=== PATIENT | female | born 1980 ===

== ENCOUNTER 2016-12-08 20:59 | Inpatient (IN) | payer OTHER ==
[2016-12-08] MEDS ORDERED: Sodium Chloride 0.9% 1,000 ML IV ONE (21:44)
--- NOTE | 2016-12-08 21:54 | C.PDOC ---
History Of Present Illness A 36 year old female presents to the emergency room with complaints of left flank pain that started at noon today. There are no exacerbating or relieving factors. Patient denies any fever, hematuria, dysuria, vaginal bleeding, fever, chills, nausea, vomiting, or any other complaints. Time Seen by Provider: 12/08/16 21:41 Chief Complaint (Nursing): Female Genitourinary History Per: Patient History/Exam Limitations: no limitations Onset/Duration Of Symptoms: Hrs Current Symptoms Are (Timing): Still Present Severity: Mild Recent travel outside of the [place]: No Past Medical History Reviewed: Historical Data, Nursing Documentation, Vital Signs Vital Signs: Last Vital Signs Temp 98.0 F 12/08/16 23:45 Pulse 81 12/08/16 23:45 Resp 16 12/08/16 23:45 BP 122/80 12/08/16 23:45 Pulse Ox 95 12/09/16 00:29 - Medical History PMH: Denies: Chronic Kidney Disease - [facility] Procedures CYSTOSCOPY NEC (04/01/14) OTH LYSIS-PERITONEAL ADHES (04/01/14) OTH REMOVE BOTH OVARIES/TUBES (04/01/14) OTHER AND UNSPECIFIED TOTAL ABDOMINAL HYSTERECTOMY (04/01/14) REMOV URETERAL DRAIN (04/01/14) RETROGRADE PYELOGRAM (04/01/14) URETERAL CATHETERIZATION (04/01/14) Family History: Denies: [place] - Social History Hx Alcohol Use: No Hx Substance Use: No - Immunization History Hx Tetanus Toxoid Vaccination: No Hx Influenza Vaccination: No Hx Pneumococcal Vaccination: No Review Of Systems Except As Marked, All Systems Reviewed And Found Negative. Constitutional: Negative for: Fever, Chills Gastrointestinal: Negative for: Nausea, Vomiting, Diarrhea Genitourinary: Negative for: Dysuria, Frequency, Incontinence, Hematuria, Vaginal Bleeding Musculoskeletal: Positive for: Back Pain (Left flank pain) Physical Exam - Physical Exam Appears: Non-toxic Skin: Warm, Dry, No Rash Head: Atraumatic, Normacephalic Eye(s): bilateral: Normal Inspection Oral Mucosa: Moist Cardiovascular: Rhythm Regular Respiratory: Normal Breath Sounds, No Rales, No Rhonchi, No Wheezing Gastrointestinal/Abdominal: Soft, No Tenderness, No Guarding, No Rebound Back: Other (Left flank pain. No rebound. No guarding.) Extremity: Normal ROM, No Tenderness Neurological/Psych: Oriented x3, Normal Speech, Normal Cognition ED Course And Treatment - Laboratory Results Result Diagrams: 12/08/16 21:54 12/08/16 21:54 O2 Sat by Pulse Oximetry: 95 (Room air) Pulse Ox Interpretation: Normal - CT Scan/US Abd/pel w/o contrast Other Rad Studies (CT/US): Read By Radiologist, Radiology Report Reviewed CT/US Interpretation: IMPRESSION: Moderate left hydronephrosis and hydroureter secondary to left adnexal mass which causes mass. effect on the distal left ureter. Differential diagnosis of left adnexal mass includes hemorrhagic cyst, endometrioma, ovarian torsion,. presence of neoplasm cannot be excluded. Consider transvaginal sonographic correlation with. Doppler. No evidence for bowel herniation, bowel obstruction, colitis, appendicitis or diverticulitis. No gross ureteral stone or obstructive uropathy is visualized. Medical Decision Making Medical Decision Making: r/o renal colic, uti, pyelo Plan: -- Abdomen & Pelvis CT -- Labs -- Zofran & Morphine 1100: noted ct reading of ovarian lesion. us added. case discussed with dr moreno, high suspicion for torsion, US pending. pt returned from US, high clinical suspicion for torsion, dr moreno bedside, will take pt to or for exploration ekg nsr [address] twave changes Disposition - Disposition Disposition: HOSPITALIZED Disposition Time: 23:46 Condition: STABLE - Clinical Impression Clinical Impression: Ovarian torsion - Scribe Statement The provider has reviewed the documentation as recorded by the Scribe Phillip Momin All medical record entries made by the Scribe were at my direction and personally dictated by me. I have reviewed the chart and agree that the record accurately reflects my personal performance of the history, physical exam, medical decision making, and the department course for this patient. I have also personally directed, reviewed, and agree with the discharge instructions and disposition. Decision To Admit - Pt Status Changed To: Hospital Disposition Of: Inpatient - Admit Certification Admit to Inpatient:: After my assessment, the patient will require hospitalization for at least two midnights. This is because of the severity of symptoms shown, intensity of services needed, and/or the medical risk in this patient being treated as an outpatient. - InPatient: Physician Admission Certification: I certify that this patient requires 2 or more midnights of care for the following reason:: pt needs or for eval for torsion - . Bed Request Type: Regular Admitting Physician: Gatito Moreno Patient Diagnosis: Ovarian torsion
[2016-12-08] MEDS ORDERED: Morphine 4 MG/ML VIAL ONE ×3 (21:56→23:40)
[2016-12-08] MEDS ORDERED: Sodium Chloride 0.9% 1,000 ML ONE (21:56)
[2016-12-08 22:05] LABS: CHLORIDE 102 mmol/L (98-107)
[2016-12-08 22:06] LABS: BASO # 0.1 K/uL (0.0-0.2); BASO % 0.6 % (0.0-2.0); EOS # 0.1 K/uL (0.0-0.7); EOS % 1.1 % (0.0-4.0); HEMATOCRIT 39.7 % (34.0-47.0); LYMPH # 3.8 K/uL (1.0-4.3); LYMPH % 29.9 % (20.0-40.0); MEAN CELL VOLUME 89.3 fL (81.0-99.0); MEAN CORPUSCULAR HEMOGLOBIN 29.5 pg (27.0-31.0); MONO # 0.9 K/uL (0.0-0.8); MONO % 7.2 % (0.0-10.0); POTASSIUM 3.9 mmol/L (3.6-5.2); RED CELL DISTRIBUTION WIDTH 13.6 % (11.5-14.5); SODIUM 137 mmol/L (132-148); WHITE BLOOD COUNT 12.7 K/uL (4.8-10.8)
[2016-12-08 22:08] LABS: ALB/GLOB RATIO 1.2 (1.0-2.1); ALKALINE PHOSPHATASE 64 U/L (38-126); AST/SGOT 24 U/L (14-36); BILIRUBIN,TOTAL 0.7 mg/dL (0.2-1.3); BLOOD UREA NITROGEN 8 mg/dL (7-17); CARBON DIOXIDE 24 mmol/L (22-30); GFR AFRICAN-AMERICAN > 60
[2016-12-08 22:09] LABS: ALT/SGPT 28 U/L (9-52); GLUCOSE,RANDOM 87 mg/dL (65-105)
[2016-12-08 22:12] LABS: INR 1.1
--- NOTE | 2016-12-08 23:14 | US ---
EXAM: US Pelvis, Transvaginal CLINICAL HISTORY: 36 years old, female; Pain; Pelvic pain; Additional info: Left adenxal pain TECHNIQUE: Real-time transvaginal pelvic ultrasound (complete) with image documentation. Transvaginal imaging was used for better evaluation of the endometrium and adnexa. EXAM DATE/TIME: 12/08/2016 10:26 PM COMPARISON: CT - ABD PELVIS W/O PO OR IV CONT 12/08/2016 10:10:21 PM FINDINGS: Uterus: Uterus is surgically absent. Right ovary: Right ovary measures approximately 21 2 x 1.4 x 1.9 cm. There are small follicles. There is flow in the right ovary. Left ovary: Left ovary is enlarged, 6.35 x 4.28 x 5.93 cm. There is a complex mass in the left ovary. Mass measures approximately 5.2 x 3.9 x 5.3 cm. There is a fluid component to the mass. There is a larger avascular solid-appearing component. There is flow in the periphery of the left ovary. IMPRESSION: Enlarged left ovary with complex mass possibly hemorrhagic cyst with adjacent simple cyst, no torsion Followup suggested to document resolution
[2016-12-08 23:27] LABS: RBC URINE < 1 /hpf (0-3); URINE BACTERIA RARE (<OCC); URINE BILIRUBIN NEGATIVE (NEGATIVE); URINE BLOOD NEGATIVE (NEGATIVE); URINE COLOR Straw (YELLOW); URINE GLUCOSE (UA) NORMAL (Normal); URINE KETONE NEGATIVE (NEGATIVE); URINE LEUKOCYTE ESTERASE NEG Leu/uL (Negative); URINE PROTEIN NEGATIVE (NEGATIVE); URINE UROBILINOGEN NORMAL mg/dL (0.2-1.0); WBC URINE 1 /hpf (0-5)
[2016-12-08 23:52] LABS: VENOUS BLOOD GAS BASE EXCESS -4.6 mmol/L (0.0-2.0); VENOUS BLOOD GAS PCO2 46 mmHg (40-60); VENOUS BLOOD PH 7.29 (7.32-7.43)
--- NOTE | 2016-12-09 00:21 | CP.SDSHP ---
Same Day Surgery H & P - History Proposed Procedure: Diagnostic Laparascopy with possible ovarian cystectomy or oophorectomy or open laparatomy Pre-Op Diagnosis: Left Lower Quadrant pain. Left Ovarian Torsion - Allergies Allergies: Allergies No Known Allergies Allergy (Verified 12/08/16 21:41) - Physical Exam Vital Signs: Vital Signs 12/08/16 12/08/16 12/08/16 21:37 22:35 23:45 Temperature 97.5 F L 98.0 F Pulse Rate 80 80 81 Respiratory 20 18 16 Rate Blood Pressure 146/87 123/72 122/80 O2 Sat by Pulse 95 96 98 Oximetry 12/08/16 23:47 Temperature Pulse Rate Respiratory Rate Blood Pressure O2 Sat by Pulse 95 Oximetry Mental Status: Alert & Oriented x3 Neuro: WNL Heart: WNL Lungs: WNL GI: WNL - {Optional Preform as Required} Breast: WNL Abdomen: Other (Tenderness with some amount of guarding on the left flank.) PERFORMING [employer] RO[address] MANAGER: Other (Enlarged left adnexal mass) : WNL ENT: WNL Other Pertinent Findings: Enlarged left Adnexal mass - Impression Impression: Left Ovarian Torsion Pt. Evaluated Today:Candidate for Anesthesia & Procedure: Yes - Date & Time Date: 12/09/16 Time: 00:23 Short Stay Discharge - Short Stay Discharge Admitting Diagnosis/Reason for Visit: ABDOMINAL PAIN Disposition: HOSPITALIZED
[2016-12-09] MEDS ORDERED: ceFAZolin IV 1 gm in Dextrose 0 GM/0 ML BAG IVPB ONE (01:09)
[2016-12-09] MEDS ORDERED: Lactated Ringer's 1,000 ML IV ONE ×2 (01:10)
[2016-12-09] MEDS ORDERED: Propofol 10 mg/ml Inj (20 ML) ONE (01:24)
[2016-12-09] MEDS ORDERED: Rocuronium 10 mg/ml (10 ml) ONE ×2 (01:25→01:26)
[2016-12-09] MEDS ORDERED: Succinylcholine Chloride 20 mg/ml Syr (5 ml) IV ONE (01:25)
[2016-12-09] MEDS ORDERED: ceFAZolin IV 1 gm in Dextrose 1 GM/50 ML BAG IVPB ONE (01:41)
[2016-12-09] MEDS ORDERED: Lidocaine 1% Inj (20ml) ONE (01:56)
[2016-12-09] MEDS ORDERED: HYDROmorphone 0.5 mg/0.5 ml ISec IVP PRN (02:08)
[2016-12-09] MEDS ORDERED: Neostigmine Methylsulfate 3mg/3ml Syringe IV ONE (02:31)
[2016-12-09] MEDS ORDERED: Oxycodone/Acetaminophen 5/325 mg Tab PO PRN (02:51)
--- NOTE | 2016-12-09 03:00 | PCM.SURG1 ---
Surgeon's Initial Post Op Note - Surgeon's Notes Surgeon: Dr Moreno Prefitter Doors: Dr Brown Type of Anesthesia: General Endo Anesthesia Administered By: Dr Iniguez Pre-Operative Diagnosis: Abdominal Pain. Left Ovarian torsion Operative Findings: Extensive intrabdominal adhesions involving the omentun and bowels to the anterior abdominal wall and to the pelvis. There was no evidence of ovarian torsion. The left ovary involved with adhesions to the omentum and the bowels. The bowels appears normal. The uterus was absent. Rt ovary not visualized. IV Fluid intake.- 600mls. Urine Output- 50mls. EBL - 10mls Post-Operative Diagnosis: Pelvic adhesions Operation Performed: Diagnostic Laparascopy Specimen/Specimens Removed: None Estimated Blood Loss: EBL {In ML}: 10 Blood Products Given: N/A Post-Op Condition: Good Date of Surgery/Procedure: 12/09/16 Time of Surgery/Procedure: 03:01
--- NOTE | 2016-12-09 07:25 | CT ---
PROCEDURE: CT Abdomen and Pelvis without intravenous contrast HISTORY: Abdominal pain COMPARISON: None. TECHNIQUE: Axial computed tomographic images were performed through the abdomen and pelvis without the use of intravenous contrast. Subsequently, sagittal and coronal reformatted images were obtained. Radiation dose: Total exam DLP = 341 mGy-cm. This CT exam was performed using one or more of the following dose reduction techniques: Automated exposure control, adjustment of the mA and/or kV according to patient size, and/or use of iterative reconstruction technique. FINDINGS: LOWER THORAX: Unremarkable. LIVER: Unremarkable. No gross lesion or ductal dilatation. GALLBLADDER AND BILE DUCTS: Unremarkable. PANCREAS: Unremarkable. No gross lesion or ductal dilatation. SPLEEN: Unremarkable. ADRENALS: Unremarkable. No mass. KIDNEYS AND URETERS: Moderate left hydroureteronephrosis secondary to a left adnexal cystic mass which measures 5.4 centimeters. Moderate left hydroureter seen. VASCULATURE: Unremarkable. No aortic aneurysm. BOWEL: Unremarkable. No obstruction. No gross mural thickening. APPENDIX: Unremarkable. Normal appendix. PERITONEUM: Unremarkable. No free fluid. No free air. LYMPH NODES: Unremarkable. No enlarged lymph nodes. BLADDER: Decompressed urinary bladder wall. REPRODUCTIVE: Retroverted uterus. Complex mass at the level of the left adnexa, possibly related to the left ovary measuring 5.4 x 4.1 x 6.1 centimeters. BONES: No acute fracture. OTHER FINDINGS: None. IMPRESSION: Moderate left hydronephrosis and hydroureter secondary to a left adnexal mass which appears to cause mass effect on the distal left ureter. Differential diagnosis of the left adnexal mass may include a hemorrhagic cyst versus endometrioma versus ovarian torsion versus neoplasm versus additional etiology. Clinical correlation. Consider transvaginal sonographic correlation with Doppler. These findings were preliminarily reported at 10:23 p.m. on 12/08/[address] Zi Quezada .
[2016-12-09 08:28] VITALS: TEMP 97.7; O2SAT 96
--- NOTE | 2016-12-09 11:29 | RAD ---
Chest x-ray single frontal view History: Preoperative evaluation. Comparison: 11/13/2016 Findings: Persistent ill-defined areas of increased radiodensity seen within the right upper to mid lung zone as well as the left mid lung which may represent chronic scarring. Additional etiologies not excluded. This is not significantly changed since the prior study. Mild venous congestion. Heart size within normal limits. Impression: No significant interval change.
--- NOTE | 2016-12-09 14:38 | CP.PCM.DIS ---
Provider - Provider Date of Admission: 12/08/16 23:47 Attending physician: Gatito Moreno Time Spent in preparation of Discharge (in minutes): 15 Diagnosis - Discharge Diagnosis (1) Left lower quadrant pain Status: Acute Priority: Low Onset Date: ~12/08/16 Comment: Status post diagnostic laparoscopy. Significant abdominal adhesions noted. No evidence of ovarian torsion. No other additional procedures performed (2) Pelvic adhesive disease Status: Chronic Priority: Medium Onset Date: ~12/08/16 Comment: Status post diagnostic laparoscopy: significant for abdominal adhesions. Right ovary not seen. Left ovary covered with adhesions. No additional procedure(s) performed. Hospital Course - Lab Results Lab Results: Most Recent Lab Values WBC 12.7 K/uL (4.8-10.8) H 12/08/16 21:54 RBC 4.44 Mil/uL (3.80-5.20) 12/08/16 21:54 Hgb 13.1 g/dL (11.0-16.0) 12/08/16 21:54 Hct 39.7 % (34.0-47.0) 12/08/16 21:54 MCV 89.3 fL (81.0-99.0) 12/08/16 21:54 MCH 29.5 pg (27.0-31.0) 12/08/16 21:54 MCHC 33.0 g/dL (33.0-37.0) 12/08/16 21:54 RDW 13.6 % (11.5-14.5) 12/08/16 21:54 Plt Count 357 K/uL (130-400) 12/08/16 21:54 MPV 8.0 fL (7.2-11.7) 12/08/16 21:54 Neut % (Auto) 61.2 % (50.0-75.0) 12/08/16 21:54 Lymph % (Auto) 29.9 % (20.0-40.0) 12/08/16 21:54 Sutter % (Auto) 7.2 % (0.0-10.0) 12/08/16 21:54 Eos % (Auto) 1.1 % (0.0-4.0) 12/08/16 21:54 Baso % (Auto) 0.6 % (0.0-2.0) 12/08/16 21:54 Neut # 7.8 K/uL (1.8-7.0) H 12/08/16 21:54 Lymph # 3.8 K/uL (1.0-4.3) 12/08/16 21:54 Sutter # 0.9 K/uL (0.0-0.8) H 12/08/16 21:54 Eos # 0.1 K/uL (0.0-0.7) 12/08/16 21:54 Baso # 0.1 K/uL (0.0-0.2) 12/08/16 21:54 PT 12.0 SECONDS (9.7-12.2) 12/08/16 21:54 INR 1.1 12/08/16 21:54 APTT 32 SECONDS (21-34) 12/08/16 21:54 pO2 40 mm/Hg (30-55) 12/08/16 23:48 VBG pH 7.29 (7.32-7.43) L 12/08/16 23:48 VBG pCO2 46 mmHg (40-60) 12/08/16 23:48 VBG HCO3 20.5 mmol/L 12/08/16 23:48 VBG Total CO2 23.5 mmol/L (22-28) 12/08/16 23:48 VBG O2 Sat (Calc) 77.3 % (40-65) H 12/08/16 23:48 VBG Base Excess -4.6 mmol/L (0.0-2.0) L 12/08/16 23:48 VBG Potassium 5.5 mmol/L (3.6-5.2) H 12/08/16 23:48 Sodium 139.0 mmol/l (132-148) 12/08/16 23:48 Chloride 110.0 mmol/L (98-107) H 12/08/16 23:48 Glucose 82 mg/dl (65-105) 12/08/16 23:48 Lactate 1.0 mmol/L (0.7-2.1) 12/08/16 23:48 Sodium 137 mmol/L (132-148) 12/08/16 21:54 Potassium 3.9 mmol/L (3.6-5.2) 12/08/16 21:54 Chloride 102 mmol/L (98-107) 12/08/16 21:54 Carbon Dioxide 24 mmol/L (22-30) 12/08/16 21:54 Anion Gap 16 (10-20) 12/08/16 21:54 BUN 8 mg/dL (7-17) 12/08/16 21:54 Creatinine 0.7 MG/DL (0.7-1.2) 12/08/16 21:54 Est GFR ( Amer) > 60 12/08/16 21:54 Est GFR (Non-Af Amer) > 60 12/08/16 21:54 Random Glucose 87 mg/dL (65-105) 12/08/16 21:54 Calcium 9.0 mg/dl (8.6-10.4) 12/08/16 21:54 Total Bilirubin 0.7 mg/dL (0.2-1.3) 12/08/16 21:54 AST 24 U/L (14-36) 12/08/16 21:54 ALT 28 U/L (9-52) 12/08/16 21:54 Alkaline Phosphatase 64 U/L (38-126) 12/08/16 21:54 Total Protein 8.0 g/dL (6.3-8.3) 12/08/16 21:54 Albumin 4.4 g/dL (3.5-5.0) 12/08/16 21:54 Globulin 3.7 gm/dL (2.2-3.9) 12/08/16 21:54 Albumin/Globulin Ratio 1.2 (1.0-2.1) 12/08/16 21:54 Lipase 51 U/L (23-300) 12/08/16 21:54 Venous Blood Potassium 5.5 mmol/L (3.6-5.2) H 12/08/16 23:48 Urine Color Straw (YELLOW) 12/08/16 23:20 Urine Clarity Hazy (Clear) 12/08/16 23:20 Urine pH 6.0 (5.0-8.0) 12/08/16 23:20 Ur Specific [place] 1.002 (1.003-1.030) L 12/08/16 23:20 Urine Protein Negative mg/dL (NEGATIVE) 12/08/16 23:20 Urine Glucose (UA) Normal mg/dL (Normal) 12/08/16 23:20 Urine Ketones Negative mg/dL (NEGATIVE) 12/08/16 23:20 Urine Blood Negative (NEGATIVE) 12/08/16 23:20 Urine Nitrate Negative (NEGATIVE) 12/08/16 23:20 Urine Bilirubin Negative (NEGATIVE) 12/08/16 23:20 Urine Urobilinogen Normal mg/dL (0.2-1.0) 12/08/16 23:20 Ur Leukocyte Esterase Neg [place]/uL (Negative) 12/08/16 23:20 Urine WBC (Auto) 1 /hpf (0-5) 12/08/16 23:20 Urine RBC (Auto) < 1 /hpf (0-3) 12/08/16 23:20 Ur Squamous Epith Cells 3 /hpf (0-5) 12/08/16 23:20 Urine Bacteria Rare (<OCC) 12/08/16 23:20 Urine HCG, Qual Negative (NEGATIVE) 12/08/16 23:20 Blood Type O POSITIVE 12/09/16 00:32 Antibody Screen Negative 12/09/16 00:32 - Hospital Course Hospital Course: Patient admitted with acute onset of left lower quadrant abdominal pain and imaging studies suggesting left ovarian cyst and possible ovarian torsion. Patient underwent diagnostic laparoscopy with findings of extensive abdominal adhesions. Uterus not seen. Right ovary not seen. Left ovary covered by adhesions. Procedure ended at this stage. POD#1 Tolerating p.o. Ambulating and voided without difficulty. Surgery performed was discussed. Teamleaderemand glassware selector used I.D.# [id number]. - Date & Time of H&P Date of H&P: 12/08/16 Time of H&P: 19:00 Discharge Exam - Head Exam Head Exam: NORMAL INSPECTION - Eye Exam Eye Exam: Normal appearance - ENT Exam ENT Exam: Mucous Membranes Moist - Neck Exam Neck exam: Full Rom - Respiratory Exam Respiratory Exam: NORMAL BREATHING PATTERN - Cardiovascular Exam Cardiovascular Exam: REGULAR RHYTHM - GI/Abdominal Exam GI & Abdominal Exam: Normal Bowel Sounds Additional comments: Healed midline vertical scar from sternum to symphysis. Clean and dry LUQ and suprapubic laparoscopi sites (+) ABS. Minimal tenderness in LLQ to palpation. No rebound No guarding. - Extremities Exam Extremities exam: full ROM, normal inspection - Back Exam Back exam: NORMAL INSPECTION - Neurological Exam Neurological exam: Alert, Oriented x3 - Psychiatric Exam Psychiatric exam: Normal Affect, Normal Mood - Skin Skin Exam: Dry, Intact, Normal Color, Warm Discharge Plan - Discharge Medications Prescriptions: Ibuprofen [Motrin] 600 mg PO Q6 PRN #24 tab PRN Reason: Pain, Mild (1-3) oxyCODONE/Acetaminophen [Percocet 5/325 mg Tab] 1 tab PO Q4 PRN #12 tab PRN Reason: Pain, Moderate (4-7) - Follow Up Plan Condition: STABLE Disposition: HOME/ ROUTINE Instructions: Ovarian Cyst (DC) Additional Instructions: No heavy lifting [id number]. F/up [facility] 12/13/16, Dr Moreno Nothing per vagina x 2weeks Referrals: Gatito Moreno [Staff Provider] - Addendum Addendum: 12/09/16 16:41 Please note: at time of laparoscopy, left ovarian cyst was NOT confirmed.
[2016-12-09 16:13] VITALS: BP 104/69; PULSE 69; RESP 20
--- NOTE | 2016-12-11 14:19 | CARD ---
APPROVED REPORT EKG Measurement Heart [id number] <Conclusion> Normal sinus rhythm Normal ECG
--- NOTE | 2016-12-12 22:59 | OP ---
PROCEDURE DATE: 12/09/2016 PREOPERATIVE DIAGNOSIS: Abdominal pain, possibly due to ovarian torsion. POSTOPERATIVE DIAGNOSIS: Abdominal pain, abdominal and pelvic adhesions. PROCEDURE DONE: Diagnostic laparoscopy performed on 12/09/2016. SURGEON: Dr. Moreno. POST TENSIONING IRONWORKER HELPER: Dr. Brown. Assistance to this procedure was needed for exposure of tissues and also help in the conduct of the surgery. The pharmaceutical assistant remained with the surgery throughout its entire length. TYPE OF ANESTHESIA: General endotracheal. ANESTHESIOLOGIST: Anesthesia administered by Dr. Nichols. FINDINGS: Extensive intra-abdominal adhesions involving the omentum and the bowels to the anterior abdominal padron and to the pelvis. There were bowel adhesions to the pelvic sidewall on the left side and omental adhesions in the area around the umbilicus and the right lower quadrant. There were dense adhesions involving the pelvic tissues and there were no apparent reproductive organs. The uterus was absent. The left ovary was seen and was involved in dense adhesions to the omentum and the bowels. There were no signs of ovarian torsion of abdominal organ. The right ovary was not visualized due to adhesions on that side. INTRAVENOUS FLUID INTAKE: 600 mL. URINE OUTPUT: 50 mL. ESTIMATED BLOOD LOSS: 50 mL. SPECIMENS REMOVED: None. DESCRIPTION OF PROCEDURE: After obtaining informed consent, the patient was sent to the OR with IV running and Munguia catheter in place. The patient was put in a supine position on the OR table and after adequate general anesthesia, was placed in the dorsal lithotomy position. A sponge forceps with gauze clamped at the tip was inserted into the vagina to help elevate the vaginal vault. Attention was then turned onto the anterior abdominal wall where a 5 mm incision was made in the left hypochondriac region about 10 cm from the costal on the left side. A 5 mm trocar and sleeve was placed in this port after filling the abdomen with a carbon dioxide gas to a pressure of 14mmHg. Once intra-abdominal placement had been done, a laparoscope was introduced into the abdominal cavity with the above findings. The left lower quadrants of the anterior abdominal wall had dense adhesions of omentum and the bowels. Another 5 mm port was placed in the right lower quadrant where a laparoscopic probe was introduced to help expose the tissues and inspect the organs. There was no evidence of ovarian torsion and after obtaining enough pictures, the procedure was completed. Other intra-abdominal organs were inspected and found to be unremarkable, but there was extensive adhesions intra-abdominally. The carbon dioxide gas was let out of the abdominal cavity and both trocar and sleeves were taken out of the abdominal cavity and the 5 mm anterior abdominal ports were closed using #4-0 Biosyn. All counts of instruments used were correct. The patient was replaced in a supine position and was sent to the recovery room awake and in stable condition. The patient tolerated the procedure well. Gatito Moreno MD cc: [id number] TT: 12/12/2016 22:59:16 maryam [place]
== END 2016-12-09 18:50 | disposition home or self-care (01) | DRG 361 ==
LOC: C.ER 20:59 → C.3T 23:47 → C.6T 12-09 03:12
PROVIDERS: ADMIT Obstetrics & Gynecology; ATTEND Obstetrics & Gynecology
PROC: 0WJJ4ZZ Inspection of Pelvic Cavity, Percutaneous Endoscopic Approach (ICD-10-PCS; principal; 2016-12-09 01:00)
DX: N73.6 Female pelvic peritoneal adhesions (postinfective) (principal); Z90.721 Acquired absence of ovaries, unilateral; Z90.710 Acquired absence of both cervix and uterus

== ENCOUNTER 2017-03-24 00:48 | Emergency (ER) | payer SELFPAY ==
[2017-03-24 00:59] VITALS: O2SAT 99
[2017-03-24] MEDS ORDERED: Sodium Chloride 0.9% 1,000 ML IV ONE (01:06)
[2017-03-24 01:25] LABS: BASO % 0.5 % (0.0-2.0); EOS # 0.1 K/uL (0.0-0.7); EOS % 1.3 % (0.0-4.0); HEMATOCRIT 38.6 % (34.0-47.0); LYMPH # 2.4 K/uL (1.0-4.3); LYMPH % 27.9 % (20.0-40.0); MEAN CELL VOLUME 88.9 fL (81.0-99.0); MEAN CORPUSCULAR HEMOGLOBIN 30.1 pg (27.0-31.0); MEAN CORPUSCULAR HGB CONC 33.9 g/dL (33.0-37.0); MEAN PLATELET VOLUME 8.2 fL (7.2-11.7); MONO # 0.8 K/uL (0.0-0.8); MONO % 9.6 % (0.0-10.0); RED CELL DISTRIBUTION WIDTH 13.2 % (11.5-14.5); WHITE BLOOD COUNT 8.7 K/uL (4.8-10.8)
--- NOTE | 2017-03-24 01:31 | C.PDOC ---
History Of Present Illness 36 year old female who presents to the ER with a complaint of chest pain and palpitations that began a half hour ago that worsens with deep inspiration and movement. Denies cough or lightheadedness. Chief Complaint (Nursing): Chest Pain History Per: Patient History/Exam Limitations: no limitations Onset/Duration Of Symptoms: Mins Current Symptoms Are (Timing): Still Present Associated Symptoms: denies: Nausea, Dyspnea, Diaphoresis, Syncope Modifying Factors: None Exacerbating Factors: Movement, Deep Breathing Alleviating Factors: None Recent travel outside of the [place]: No Past Medical History Reviewed: Historical Data, Nursing Documentation, Vital Signs Vital Signs: Last Vital Signs Temp 97.8 F 03/24/17 00:55 Pulse 87 03/24/17 00:55 Resp 14 03/24/17 00:55 BP 149/97 H 03/24/17 00:55 Pulse Ox 99 03/24/17 01:44 - Medical History PMH: No Chronic Diseases - [facility] Procedures CYSTOSCOPY NEC (04/01/14) INSPECTION OF PELVIC CAVITY, PERC ENDO APPROACH (12/08/16) OTH LYSIS-PERITONEAL ADHES (04/01/14) OTH REMOVE BOTH OVARIES/TUBES (04/01/14) OTHER AND UNSPECIFIED TOTAL ABDOMINAL HYSTERECTOMY (04/01/14) REMOV URETERAL DRAIN (04/01/14) RETROGRADE PYELOGRAM (04/01/14) URETERAL CATHETERIZATION (04/01/14) Family History: States: No Known Family Hx - Social History Hx Alcohol Use: No Hx Substance Use: No - Immunization History Hx Tetanus Toxoid Vaccination: No Hx Influenza Vaccination: No Hx Pneumococcal Vaccination: No Review Of Systems Constitutional: Negative for: Fever, Chills Cardiovascular: Positive for: Chest Pain, Palpitations. Negative for: Light Headedness Respiratory: Negative for: Cough, Shortness of Breath Gastrointestinal: Negative for: Nausea, Vomiting Physical Exam - Physical Exam Appears: Non-toxic, No Acute Distress Skin: Normal Color, Warm, Dry Head: Atraumatic, Normacephalic Oral Mucosa: Moist Throat: Normal, No Erythema Chest: Symmetrical, Tenderness (Mild left anterior wall area) Cardiovascular: Rhythm Regular, No Murmur Respiratory: Normal Breath Sounds, No Rales, No Rhonchi, No Wheezing Gastrointestinal/Abdominal: Soft, No Tenderness Neurological/Psych: Oriented x3, Normal Speech, Normal Cognition ED Course And Treatment - Laboratory Results Result Diagrams: 03/24/17 01:17 03/24/17 01:17 ECG: Interpreted By Me, Viewed By Me ECG Rhythm: Sinus Rhythm ECG Interpretation: Normal, No Acute Changes Interpretation Of ECG: NSR, normal tracings. Rate From EC O2 Sat by Pulse Oximetry: 99 Pulse Ox Interpretation: Normal - Radiology CXR: Interpreted by Me, Viewed By Me CXR Interpretation: Yes: No Acute Disease, Other (normal chest film). No: Infiltrates Progress Note: EKG, blood work, CXR, and urinalysis ordered. Toradol administered. Disposition Counseled Patient/Family Regarding: Diagnosis - Disposition Referrals: Yves Weathers [Outside] Disposition: HOME/ ROUTINE Disposition Time: :09 Condition: STABLE Prescriptions: Naproxen [Naprosyn Tab] 375 mg PO TIDPC #20 tab Instructions: Chest Wall Pain (ED) Forms: [employer] (Latvian) - POA Present On Arrival: None - Clinical Impression Clinical Impression: Chest wall pain - Scribe Statement The provider has reviewed the documentation as recorded by the Scribjaz Tavares All medical record entries made by the Scribe were at my direction and personally dictated by me. I have reviewed the chart and agree that the record accurately reflects my personal performance of the history, physical exam, medical decision making, and the department course for this patient. I have also personally directed, reviewed, and agree with the discharge instructions and disposition.
[2017-03-24] MEDS ORDERED: Sodium Chloride 0.9% 1,000 ML ONE (01:38)
[2017-03-24 01:51] LABS: ALB/GLOB RATIO 1.1 (1.0-2.1); ALKALINE PHOSPHATASE 63 U/L (38-126); ALT/SGPT 28 U/L (9-52); AST/SGOT 21 U/L (14-36); BILIRUBIN,TOTAL 0.5 mg/dL (0.2-1.3); BLOOD UREA NITROGEN 8 mg/dL (7-17); CARBON DIOXIDE 20 mmol/L (22-30); CHLORIDE 108 mmol/L (98-107); GFR AFRICAN-AMERICAN > 60; GLUCOSE,RANDOM 106 mg/dL (65-105); POTASSIUM 3.9 mmol/L (3.6-5.2); SODIUM 142 mmol/L (132-148); TOTAL PROTEIN 7.2 g/dL (6.3-8.3)
[2017-03-24 02:20] VITALS: BP 139/97; PULSE 84; RESP 18; TEMP 98.2
--- NOTE | 2017-03-24 11:53 | RAD ---
HISTORY: chest pain COMPARISON: Chest CT 04/16/2014 and more recent prior chest radiograph 12/09/2016. TECHNIQUE: Chest PA and lateral FINDINGS: LUNGS: No active pulmonary disease. Chronic fibrotic changes are mild at the right apex and mid left lung laterally, stable in the interval. Associated granulomatous changes are also noted in the same distributions. PLEURA: No significant pleural effusion identified. No pneumothorax apparent. CARDIOVASCULAR: Normal. OSSEOUS STRUCTURES: No significant abnormalities. VISUALIZED UPPER ABDOMEN: Normal. OTHER FINDINGS: None. IMPRESSION: No acute cardiopulmonary disease identified. Chronic fibrotic changes are seen as well as granulomatous disease on a limited basis as discussed above bilaterally. No significant interval change appreciable.
--- NOTE | 2017-04-06 20:34 | CARD ---
APPROVED REPORT EKG Measurement Heart [id number] AL [id number] <Conclusion> Normal sinus rhythm Normal ECG
== END 2017-03-24 02:20 | disposition home or self-care (01) ==
LOC: C.ER 00:48
DX: R07.89 Other chest pain (principal)
CPT/HCPCS: 71020; 80053; 84484; 84703; 85025; 85378; 96374; 99284; J1885; J7040

== ENCOUNTER 2017-08-22 19:09 | Emergency (ER) | payer SELFPAY ==
[2017-08-22] MEDS ORDERED: Morphine 4 MG/ML VIAL ONE (19:45)
[2017-08-22 19:57] LABS: BASO # 0.1 K/uL (0.0-0.2); BASO % 0.8 % (0.0-2.0); EOS # 0.1 K/uL (0.0-0.7); EOS % 1.4 % (0.0-4.0); HEMOGLOBIN 14.7 g/dL (11.0-16.0); LYMPH # 4.1 K/uL (1.0-4.3); LYMPH % 37.6 % (20.0-40.0); MEAN CELL VOLUME 89.5 fL (81.0-99.0); MEAN CORPUSCULAR HEMOGLOBIN 31.4 pg (27.0-31.0); MEAN CORPUSCULAR HGB CONC 35.1 g/dL (33.0-37.0); MEAN PLATELET VOLUME 8.4 fL (7.2-11.7); MONO # 0.8 K/uL (0.0-0.8); MONO % 6.9 % (0.0-10.0); NEUT # 5.9 K/uL (1.8-7.0); NEUT % 53.3 % (50.0-75.0); RBC 4.67 Mil/uL (3.80-5.20); RED CELL DISTRIBUTION WIDTH 12.9 % (11.5-14.5)
--- NOTE | 2017-08-22 19:57 | C.PDOC ---
History Of Present Illness Everton Pittman is a 37 year old female, with no significant past medical history , who presents to the emergency department complaining of a sudden left sided chest pain associated with cough onset today at 4pm. Patient describes the pain as constant, worst with deep breaths and movement. Patient denies similar symptoms in the past. She denies any fever, chills, shortness of breath, recent travels, leg pain or swelling. No further medical complaints. PMD: None provided. Time Seen by Provider: 08/22/17 19:31 Chief Complaint (Nursing): Chest Pain History Per: Patient History/Exam Limitations: no limitations Onset/Duration Of Symptoms: Hrs (today), Sudden Onset Current Symptoms Are (Timing): Still Present Quality: "Pain" Associated Symptoms: Other (cough). denies: Dyspnea Exacerbating Factors: Movement, Deep Breathing Past Medical History Reviewed: Historical Data, Nursing Documentation, Vital Signs Vital Signs: Last Vital Signs Temp 98.7 F 08/22/17 22:42 Pulse 71 08/22/17 22:42 Resp 18 08/22/17 22:42 BP 105/71 08/22/17 22:42 Pulse Ox 99 08/22/17 22:42 - Medical History PMH: No Chronic Diseases Denies: Chronic Kidney Disease Surgical History: No Surg Hx - [facility] Procedures CYSTOSCOPY NEC (04/01/14) INSPECTION OF PELVIC CAVITY, PERC ENDO APPROACH (12/08/16) OTH LYSIS-PERITONEAL ADHES (04/01/14) OTH REMOVE BOTH OVARIES/TUBES (04/01/14) OTHER AND UNSPECIFIED TOTAL ABDOMINAL HYSTERECTOMY (04/01/14) REMOV URETERAL DRAIN (04/01/14) RETROGRADE PYELOGRAM (04/01/14) URETERAL CATHETERIZATION (04/01/14) Family History: States: Unknown Family Hx Denies: [place] - Social History Hx Tobacco Use: No Hx Alcohol Use: No Hx Substance Use: No - Immunization History Hx Tetanus Toxoid Vaccination: No Hx Influenza Vaccination: No Hx Pneumococcal Vaccination: No Review Of Systems Constitutional: Negative for: Fever, Chills Cardiovascular: Positive for: Chest Pain (left sided constant) Respiratory: Positive for: Cough. Negative for: Shortness of Breath Musculoskeletal: Negative for: Leg Pain (or swelling) Physical Exam - Physical Exam Appears: Other (uncomfortable) Skin: Warm, Dry Head: Atraumatic, Normacephalic Eye(s): bilateral: Normal Inspection, PERRL, EOMI Ear(s): Bilateral: Normal Nose: Normal Oral Mucosa: Moist Throat: Normal Neck: Normal ROM, Supple Chest: Tenderness (chest wall on palpation to anterior along left lateral chest , and over the left pectoralis major.) Cardiovascular: Rhythm Regular Respiratory: Normal Breath Sounds (clear b/l), No Wheezing Gastrointestinal/Abdominal: Normal Exam, Soft, No Tenderness Back: Normal Inspection, No CVA Tenderness, No Vertebral Tenderness Extremity: Normal ROM, No Calf Tenderness, No Deformity, No Swelling Neurological/Psych: Oriented x3 (alert) ED Course And Treatment - Laboratory Results Result Diagrams: 08/22/17 19:45 08/22/17 19:45 Lab Interpretation: No Acute Changes ECG: Interpreted By Me ECG Rhythm: Sinus Rhythm ECG Interpretation: No Acute Changes O2 Sat by Pulse Oximetry: 100 (RA) Pulse Ox Interpretation: Normal - Radiology CXR: Interpreted by Me CXR Interpretation: Yes: No Acute Disease, Other (chronic granulomatous disease unchanged from prior CXR) Reevaluation Time: 22:58 Reassessment Condition: Improved (after IV Toradol.) Medical Decision Making Medical Decision Making: Initial Impression:Chest Pain Initial Plan: --EKG --CMP --Troponin I --CBC w/ differential --D Dimer --Chest one view [RAD] --Morphine 2mg IVP --HCG, Qualitative Urine --Urinalysis --reevaluation Disposition Counseled Patient/Family Regarding: Studies Performed, Diagnosis, Need For Followup, Rx Given - Disposition Referrals: Ellis Pulido MD [Medical Doctor] - Disposition: HOME/ ROUTINE Disposition Time: 22:59 Condition: IMPROVED Prescriptions: Naproxen [Naprosyn] 1 tab PO BID PRN #25 tab PRN Reason: Pain Instructions: Chest Wall Pain (ED) Forms: [employer] (Hungarian) - Clinical Impression Clinical Impression: Chest wall pain - Scribe Statement Mario Hernandez Provider Attestation: All medical record entries made by the Scribe were at my direction and personally dictated by me. I have reviewed the chart and agree that the record accurately reflects my personal performance of the history, physical exam, medical decision making, and the department course for this patient. I have also personally directed, reviewed, and agree with the discharge instructions and disposition.
[2017-08-22 20:08] LABS: ALB/GLOB RATIO 1.3 (1.0-2.1); ALBUMIN 4.4 g/dL (3.5-5.0); ALT/SGPT 21 U/L (9-52); AST/SGOT 23 U/L (14-36); BLOOD UREA NITROGEN 13 mg/dL (7-17); CALCIUM 9.6 mg/dl (8.6-10.4); GFR AFRICAN-AMERICAN > 60; GFR NON-AFRICAN AMERICAN > 60
[2017-08-22 21:14] LABS: SQUAMOUS EPITHIAL 4 /hpf (0-5); URINE BACTERIA RARE (<OCC)
[2017-08-22] MEDS ORDERED: Albuterol 0.083% Inhal Sol (2.5 mg/3 mL) UD IH STA (21:14)
[2017-08-22 21:17] LABS: URINE BILIRUBIN NEGATIVE (NEGATIVE); URINE BLOOD NEGATIVE (NEGATIVE); URINE CLARITY CLEAR (Clear); URINE COLOR LIGHT YELLOW (YELLOW); URINE GLUCOSE (UA) NEGATIVE (Normal); URINE LEUKOCYTE ESTERASE NEGATIVE Leu/uL (Negative); URINE NITRATE NEGATIVE (NEGATIVE); URINE PROTEIN NEGATIVE (NEGATIVE); URINE UROBILINOGEN 0.2 mg/dL (0.2-1.0)
[2017-08-22 21:18] LABS: HCG,QUALITATIVE URINE NEGATIVE (NEGATIVE)
[2017-08-22] MEDS ORDERED: Albuterol 0.083% Inhal Sol (2.5 mg/3 mL) UD ONE (21:24)
[2017-08-22 22:43] VITALS: BP 105/71; PULSE 71; RESP 18; TEMP 98.7
[2017-08-22 23:01] VITALS: O2SAT 100
--- NOTE | 2017-08-23 08:54 | RAD ---
Chest x-ray single frontal view History: Chest pain. Comparison: 03/24/2017 Findings: Mild venous congestion. Probable chronic fibrotic changes and or granulomatous change is seen in the upper to mid lung zones bilaterally. Heart size within normal limits. Tortuous aorta. Degenerative changes in the spine. Impression: Mild venous congestion. Probable chronic fibrotic changes and or granulomatous change is seen in the upper to mid lung zones bilaterally.
--- NOTE | 2017-08-23 21:55 | CARD ---
APPROVED REPORT EKG Measurement Heart [id number] ID [id number] <Conclusion> Normal sinus rhythm with sinus arrhythmia Normal ECG
== END 2017-08-22 23:07 | disposition home or self-care (01) ==
LOC: C.ER 19:09
DX: R07.89 Other chest pain (principal)
CPT/HCPCS: 71045; 80053; 81001; 84484; 84703; 85025; 85378; 87804; 93005; 94640; 96374; 96375; 99285; J1885; J2270

== ENCOUNTER 2017-09-10 10:52 | Emergency (ER) | payer OTHER ==
[2017-09-10] MEDS ORDERED: Sodium Chloride 0.9% 1,000 ML IV ONE (11:30)
--- NOTE | 2017-09-10 11:34 | C.PDOC ---
History Of Present Illness 37yo female, with history of a hysterectomy, presents to ER with complaints of left lower quadrant abdominal pain for the past 3 days. Patient states the pain is sharp and present constantly. She has taken Tylenol and Advil, with last dose at 10PM with minimal relief. She also has a subjective fever but denies any chills, nausea, vomiting, diarrhea, constipation. She reports her last bowel movement was yesterday and was normal. She also denies any dysuria, hematuria. Patient denies any chest pain or shortness of breath as well. Of note , patient reports this is the first instance of such pain. She has no other medical complaints. Time Seen by Provider: 09/10/17 11:12 Chief Complaint (Nursing): Abdominal Pain History Per: Patient History/Exam Limitations: no limitations Onset/Duration Of Symptoms: Days (3), Persistent Location Of Pain/Discomfort: LLQ Quality Of Discomfort: Sharp, "Pain" Associated Symptoms: Fever. denies: Chills, Nausea, Vomiting, Diarrhea, Chest Pain, Urinary Symptoms Abnormal Vaginal Bleeding: No Past Medical History Reviewed: Historical Data, Nursing Documentation, Vital Signs Vital Signs: Last Vital Signs Temp 98.1 F 09/10/17 11:20 Pulse 78 09/10/17 14:38 Resp 16 09/10/17 14:38 BP 95/59 L 09/10/17 14:38 Pulse Ox 98 09/10/17 14:38 - Medical History PMH: No Chronic Diseases Denies: Chronic Kidney Disease Other Surgeries: Hysterectomy - [facility] Procedures CYSTOSCOPY NEC (04/01/14) INSPECTION OF PELVIC CAVITY, PERC ENDO APPROACH (12/08/16) OTH LYSIS-PERITONEAL ADHES (04/01/14) OTH REMOVE BOTH OVARIES/TUBES (04/01/14) OTHER AND UNSPECIFIED TOTAL ABDOMINAL HYSTERECTOMY (04/01/14) REMOV URETERAL DRAIN (04/01/14) RETROGRADE PYELOGRAM (04/01/14) URETERAL CATHETERIZATION (04/01/14) Family History: States: Unknown Family Hx Denies: [place] - Social History Hx Tobacco Use: No Hx Alcohol Use: No Hx Substance Use: No - Immunization History Hx Tetanus Toxoid Vaccination: No Hx Influenza Vaccination: No Hx Pneumococcal Vaccination: No Review Of Systems Except As Marked, All Systems Reviewed And Found Negative. Constitutional: Positive for: Fever (tactile). Negative for: Chills Cardiovascular: Negative for: Chest Pain Respiratory: Negative for: Shortness of Breath Gastrointestinal: Positive for: Abdominal Pain. Negative for: Nausea, Vomiting , Diarrhea, Constipation Genitourinary: Negative for: Dysuria, Hematuria Physical Exam - Physical Exam Appears: Non-toxic Skin: Warm, Dry Head: Atraumatic, Normacephalic Eye(s): bilateral: Normal Inspection Neck: Normal ROM, Supple Chest: Symmetrical Cardiovascular: Rhythm Regular Respiratory: Normal Breath Sounds, No Wheezing Gastrointestinal/Abdominal: Bowel Sounds, Soft, Tenderness (diffuse tenderness, more exquisitely present in left lower quadrant), No Guarding, Rebound Back: Normal Inspection, No CVA Tenderness, No Vertebral Tenderness Neurological/Psych: Oriented x3, Normal Speech ED Course And Treatment - Laboratory Results Result Diagrams: 09/10/17 11:48 09/10/17 11:48 O2 Sat by Pulse Oximetry: 98 (ra) Pulse Ox Interpretation: Normal - Physician Consult Information Physician Contacted: Molly A Elliot Outcome Of Conversation: Discussed patient with scientific aide magnetic resonance imaging director, recommends outpatient follow up with scientific aide in 6-8 weeks. Medical Decision Making Medical Decision Making: Impression: Abdominal pain x 3 days Plan: -- Labs -- Toradol 30mg IVP -- IV Fluids Disposition Counseled Patient/Family Regarding: Studies Performed, Diagnosis, Need For Followup, Rx Given - Disposition Referrals: [facility] [Outside] Disposition: HOME/ ROUTINE Disposition Time: 18:10 Condition: STABLE Additional Instructions: FOLLOW UP WITH CERTIFIED WELLNESS PROGRAM COORDINATOR WITHIN 1 WEEK USE MEDICATIONS NEEDED FOR PAIN RETURN TO ER IF SYMPTOMS WORSEN Prescriptions: Acetaminophen with Codeine [Tylenol with Codeine #3 Tablet] 1 each PO Q6 PRN # 12 tablet PRN Reason: pain Naproxen 375 mg PO BID PRN #20 tablet PRN Reason: pain Instructions: Ovarian Cyst (DC) Forms: [employer] (South Sudanese) Print Language: FAROESE - POA Present On Arrival: None - Clinical Impression Clinical Impression: Left ovarian cyst - Scribe Statement The provider has reviewed the documentation as recorded by the Scribe (Pavithra Childress) Provider Attestation: All medical record entries made by the Scribe were at my direction and personally dictated by me. I have reviewed the chart and agree that the record accurately reflects my personal performance of the history, physical exam, medical decision making, and the department course for this patient. I have also personally directed, reviewed, and agree with the discharge instructions and disposition.
[2017-09-10 11:43] VITALS: TEMP 98.1
[2017-09-10 11:52] LABS: BASO # 0.1 K/uL (0.0-0.2); EOS # 0.2 K/uL (0.0-0.7); LYMPH # 2.5 K/uL (1.0-4.3); MEAN CELL VOLUME 90.1 fL (81.0-99.0); NEUT % 61.2 % (50.0-75.0); RED CELL DISTRIBUTION WIDTH 12.9 % (11.5-14.5)
[2017-09-10 11:54] LABS: BASO % 0.9 % (0.0-2.0); EOS % 1.9 % (0.0-4.0); LYMPH % 28.1 % (20.0-40.0); MEAN CORPUSCULAR HEMOGLOBIN 31.1 pg (27.0-31.0); MEAN CORPUSCULAR HGB CONC 34.5 g/dL (33.0-37.0); MEAN PLATELET VOLUME 8.6 fL (7.2-11.7); MONO # 0.7 K/uL (0.0-0.8); MONO % 7.9 % (0.0-10.0); NEUT # 5.4 K/uL (1.8-7.0); RBC 4.49 Mil/uL (3.80-5.20); WHITE BLOOD COUNT 8.8 K/uL (4.8-10.8)
[2017-09-10 11:58] LABS: HCG,QUALITATIVE URINE NEGATIVE (NEGATIVE)
[2017-09-10 12:02] LABS: SQUAMOUS EPITHIAL 11 /hpf (0-5); URINE BACTERIA OCC (<OCC); URINE BILIRUBIN NEGATIVE (NEGATIVE); URINE BLOOD NEGATIVE (NEGATIVE); URINE CLARITY Hazy (Clear); URINE COLOR Yellow (YELLOW); URINE GLUCOSE (UA) NORMAL (Normal); URINE LEUKOCYTE ESTERASE NEG Leu/uL (Negative); URINE NITRATE NEGATIVE (NEGATIVE); URINE PROTEIN 1+ mg/dL (NEGATIVE); URINE UROBILINOGEN NORMAL mg/dL (0.2-1.0)
[2017-09-10 12:05] LABS: ALB/GLOB RATIO 1.2 (1.0-2.1); ALBUMIN 4.1 g/dL (3.5-5.0); ALT/SGPT 23 U/L (9-52); AST/SGOT 19 U/L (14-36); BLOOD UREA NITROGEN 14 mg/dL (7-17); CALCIUM 9.6 mg/dl (8.6-10.4); GFR AFRICAN-AMERICAN > 60; GFR NON-AFRICAN AMERICAN > 60; LIPASE 74 U/L (23-300)
[2017-09-10] MEDS ORDERED: Iodixanol 320 MG/ML 100 ML BOTTLE IV ONE (12:44)
[2017-09-10 14:38] VITALS: RESP 16
--- NOTE | 2017-09-10 15:25 | CT ---
PROCEDURE: CT Abdomen and Pelvis with contrast HISTORY: llq pain, r/o diverticulitis COMPARISON: CT of the abdomen and pelvis without contrast performed 12/08/16 TECHNIQUE: Contrast dose: 100 mL Visipaque Radiation dose: Total exam DLP = 308.43 mGy-cm. This CT exam was performed using one or more of the following dose reduction techniques: Automated exposure control, adjustment of the mA and/or kV according to patient size, and/or use of iterative reconstruction technique. FINDINGS: LOWER THORAX: No visible consolidation, pleural effusion, or pneumothorax. LIVER: Subtle indeterminate hypodense region adjacent to the falciform ligament, right hepatic lobe ; favored to reflect focal fatty infiltration. GALLBLADDER AND BILE DUCTS: Unremarkable. PANCREAS: Unremarkable. SPLEEN: Unremarkable. ADRENALS: Unremarkable. KIDNEYS AND URETERS: The kidneys enhance symmetrically. No hydronephrosis or obstructing calculus identified. VASCULATURE: No aortic aneurysm. BOWEL: Stomach is nondistended. Lack of oral contrast limits evaluation for bowel pathology. Bowel loops appear within normal limits of caliber without evidence of obstruction. Small bowel wall thickening in the right upper quadrant ; correlate for enteritis. APPENDIX: The appendix appears within normal limits of caliber. No secondary signs of acute appendicitis. PERITONEUM: No significant free fluid. No definite free air. LYMPH NODES: No bulky adenopathy identified. BLADDER: Under distention of the urinary bladder limits evaluation. REPRODUCTIVE: Uterus is absent consistent with hysterectomy. 5.5 x 4.3 cm left adnexal cystic lesion with evidence of septation. BONES: No acute osseous abnormality is detected. OTHER FINDINGS: None. IMPRESSION: 5.5 x 4.3 cm left adnexal cystic lesion, indeterminate. This finding demonstrates evidence of a septation. Recommend pelvic ultrasound for further characterization. Thickened small bowel loops in the right upper quadrant ; correlate clinically for enteritis. Subtle indeterminate hypodense region adjacent to the falciform ligament, right hepatic lobe ; favored to reflect focal fatty infiltration. Hysterectomy.
--- NOTE | 2017-09-10 17:41 | US ---
Indication: left adnexal mass/cyst? left sided pain Comparison: CT abdomen and pelvis with IV contrast performed 09/10/17, pelvic ultrasound performed 02/02/17 Technique: Real-time transabdominal pelvic ultrasound was performed. In addition a transvaginal pelvic ultrasound was necessary to better depict pelvic anatomy. Findings: The patient is status hysterectomy. The right ovary measures approximately 2.3 x 1.1 x 2.0 cm and contains 9 mm dominant follicle/cyst. The left ovary measures approximately 5.9 x 4.7 x 5.6 cm. Complex heterogeneous mostly hypodense left septated ovarian cystic lesion measures approximately 5.2 x 3.4 x 3.2 cm. Blood flow is demonstrated to both ovaries. No significant pelvic free fluid identified. Impression: Status post hysterectomy. 5.2 cm complex heterogeneous mostly hypodense left ovarian cystic lesion containing mildly thickened septation which appears vascular. Recommend 6 week ultrasound follow-up to assess for complete resolution. If this finding does not resolve on 6 week follow-up, recommend follow-up MRI pelvis for further evaluation. 9 mm right ovarian dominant follicle/cyst.
[2017-09-10 18:33] VITALS: BP 115/74; PULSE 63; O2SAT 100
== END 2017-09-10 18:34 | disposition home or self-care (01) ==
LOC: C.ER 10:52
DX: N83.202 Unspecified ovarian cyst, left side (principal)
CPT/HCPCS: 74177; 76830; 76856; 80053; 81001; 83690; 84703; 85025; 96361; 96374; 99285; J1885; J7040; Q9967

== ENCOUNTER 2017-10-23 13:21 | Emergency (ER) | payer OTHER ==
[2017-10-23 13:57] VITALS: TEMP 97.9
[2017-10-23 14:42] LABS: HEMOGLOBIN 14.5 g/dL (11.0-16.0); MEAN CELL VOLUME 90.4 fL (81.0-99.0); MEAN CORPUSCULAR HEMOGLOBIN 31.5 pg (27.0-31.0); MEAN CORPUSCULAR HGB CONC 34.8 g/dL (33.0-37.0); MEAN PLATELET VOLUME 8.2 fL (7.2-11.7); RBC 4.62 Mil/uL (3.80-5.20); RED CELL DISTRIBUTION WIDTH 12.8 % (11.5-14.5)
[2017-10-23 14:47] LABS: SQUAMOUS EPITHIAL 8 /hpf (0-5); URINE BACTERIA RARE (<OCC); URINE BILIRUBIN NEGATIVE (NEGATIVE); URINE BLOOD NEGATIVE (NEGATIVE); URINE CLARITY Hazy (Clear); URINE COLOR Yellow (YELLOW); URINE GLUCOSE (UA) NORMAL (Normal); URINE LEUKOCYTE ESTERASE NEG Leu/uL (Negative); URINE PROTEIN NEGATIVE (NEGATIVE); URINE UROBILINOGEN NORMAL mg/dL (0.2-1.0)
--- NOTE | 2017-10-23 15:03 | C.PDOC ---
History Of Present Illness <Layla Reese E - Last Filed: 10/23/17 18:05> <Chuck Mulligan - Last Filed: 10/24/17 12:35> Patient is a 37 year old with past medical history of fibroids, which she had a hysterectomy and salpingectomy for in who presents to the ED with complaints of diffuse abdominal/pelvic pain that is more localized to the left pelvic region. Patient was seen in the ED 09/10/17 for the same complaint and was instructed to follow up with WRITER EDITOR outpatient for a complex left ovarian cyst. Patient presents today with similar presentation that started this morning. Patient denies nausea, vomiting, abnormal vaginal discharge, diarrhea, constipation, hematochezia, hematuria but admits to subjective fever and chills. (Layla Reese) History Per: Patient History/Exam Limitations: no limitations Onset/Duration Of Symptoms: Hrs Current Symptoms Are (Timing): Still Present Severity: Moderate Pain Scale Rating Of: 5 Location: Diffuse abdominal pain < left lower quadrant Reports Recently: Seen In ED Recent travel outside of the [place]: No Additional History Per: Patient <Layla Reese E - Last Filed: 10/23/17 18:05> <Chuck Mulligan - Last Filed: 10/24/17 12:35> Time Seen by Provider: 10/23/17 14:31 Chief Complaint (Nursing): Abdominal Pain Past Medical History - Medical History PMH: Denies: Chronic Kidney Disease Other Surgeries: Hysterectomy with salpingectomy (2013). Diagnostic laparascopic to r/o ovarin torsion (2016) Family History: States: Unknown Family Hx Denies: [place] - Social History Hx Tobacco Use: No Hx Alcohol Use: No Hx Substance Use: No - Immunization History Hx Tetanus Toxoid Vaccination: No Hx Influenza Vaccination: No Hx Pneumococcal Vaccination: No <Layla Reese - Last Filed: 10/23/17 18:05> Vital Signs: Last Vital Signs Temp 97.9 F 10/23/17 13:54 Pulse 55 L 10/23/17 17:06 Resp 18 10/23/17 17:06 BP 124/80 10/23/17 17:06 Pulse Ox 100 10/23/17 18:19 - [facility] Procedures CYSTOSCOPY NEC (04/01/14) INSPECTION OF PELVIC CAVITY, PERC ENDO APPROACH (12/08/16) OTH LYSIS-PERITONEAL ADHES (04/01/14) OTH REMOVE BOTH OVARIES/TUBES (04/01/14) OTHER AND UNSPECIFIED TOTAL ABDOMINAL HYSTERECTOMY (04/01/14) REMOV URETERAL DRAIN (04/01/14) RETROGRADE PYELOGRAM (04/01/14) URETERAL CATHETERIZATION (04/01/14) Review Of Systems Constitutional: Positive for: Fever, Chills. Negative for: Weakness, Malaise Eyes: Negative for: Pain, Vision Change ENT: Negative for: Ear Pain, Ear Discharge Cardiovascular: Negative for: Chest Pain, Palpitations Respiratory: Negative for: Cough, Shortness of Breath, Hemoptysis Gastrointestinal: Positive for: Abdominal Pain. Negative for: Nausea, Vomiting , Diarrhea, Constipation, Hematochezia, Hematemesis Genitourinary: Positive for: Pelvic Pain. Negative for: Dysuria, Frequency, Hematuria, Vaginal Discharge, Vaginal Bleeding Neurological: Negative for: Weakness, Numbness, Confusion, Seizures, Dizziness <Layla Reese E - Last Filed: 10/23/17 18:05> Physical Exam - Physical Exam Appears: No Acute Distress Skin: Normal Color Head: Atraumatic, Normacephalic Eye(s): bilateral: Normal Inspection, EOMI Cardiovascular: Rhythm Regular, No Murmur Respiratory: Normal Breath Sounds, No Decreased Breath Sounds, No Accessory Muscle Use, No Rales, No Rhonchi Gastrointestinal/Abdominal: Normal Exam, Bowel Sounds, Tenderness, Other Pelvic: Other (Pelvic tenderness on palpation ) Extremity: Normal ROM, No Tenderness, No Pedal Edema, No Calf Tenderness, No Swelling Extremity: Bilateral: Atraumatic Neurological/Psych: Oriented x3, Normal Speech <Layla Reese E - Last Filed: 10/23/17 18:05> ED Course And Treatment - Laboratory Results Result Diagrams: 10/23/17 14:38 10/23/17 14:38 Lab Interpretation: Normal O2 Sat by Pulse Oximetry: 100 Reevaluation Time: 18:00 Reassessment Condition: Improved <Layla Reese - Last Filed: 10/23/17 18:05> - Laboratory Results Result Diagrams: 10/23/17 14:38 10/23/17 14:38 <Chuck Mulligan - Last Filed: 10/24/17 12:35> Medical Decision Making <Layla Reese - Last Filed: 10/23/17 18:05> <Chuck Mulligan - Last Filed: 10/24/17 12:35> Medical Decision Making: Transvaginal and pelvis US: FINDINGS:UTERUS:Status post hysterectomy, ENDOMETRIUM:N/A, CERVIX: Hysterectomy, RIGHT OVARY: Measures 2.0 x 2.7 x 3.0 cm. No solid mass. 1.7 x 1.2 x 1.5 cm physiologic cyst. LEFT OVARY: Measures 2.6 x 1.7 x 2.7 cm. No solid mass. Normal flow. FREE FLUID: No significant free fluid noted. OTHER FINDINGS: None. IMPRESSION: Status post hysterectomy. Otherwise unremarkable. CT Abdomen and Pelvis with contrast: FINDINGS:LOWER THORAX:Unremarkable. LIVER: Unremarkable. No gross lesion or ductal dilatation. GALLBLADDER AND BILE DUCTS: Unremarkable. PANCREAS: Unremarkable. No gross lesion or ductal dilatation. SPLEEN:Unremarkable. ADRENALS: Unremarkable. No mass. KIDNEYS AND URETERS: Unremarkable. No hydronephrosis. No solid mass. VASCULATURE : Unremarkable. No aortic aneurysm. BOWEL: The stomach is collapsed accentuating gastric wall thickness . In the absence of oral contrast no additional information can be gleaned from this study. Gastritis therefore should be considered in the appropriate clinical setting. APPENDIX: Normal appendix. PERITONEUM:Unremarkable. No free fluid. No free air. LYMPH NODES: Unremarkable. No enlarged lymph nodes. BLADDER: Unremarkable. REPRODUCTIVE: Unremarkable. Cyst right hemipelvis better visualize, confirmed as right adnexal cyst measuring 2 cm. BONES: No acute fracture. OTHER FINDINGS: None. IMPRESSION: Diffuse gastric wall thickening likely related to absence of oral contrast, a decompressed stomach. Additional benign and/or incidental findings described above. (Layla Reese) Patient with llq pain on exam, (+) bs, pain improved after medications, imaging ordered and no acute findings. Patient discharged home to follow up with medical clinic or pmd within 2 days (Chuck Mulilgan) Disposition Discussed With : Chuck Mulligan - Disposition Disposition Time: 18:12 <Layla Reese - Last Filed: 10/23/17 18:05> <Chuck Mulligan - Last Filed: 10/24/17 12:35> - Disposition Referrals: [facility] [Outside] [facility] [Outside] [facility] [Outside] [facility] [Outside] Disposition: HOME/ ROUTINE Condition: GOOD Additional Instructions: Please discharge patient home Please follow up with an Tape Rules Printing Machine Operator at the clinic referred to you or recommended to you Please follow up with [facility] to establish primary care, Please return to the ED if pain worsens in two days. Forms: [employer] (Arabic), General Discharge Instructions - Clinical Impression Clinical Impression: Abdominal pain, Abdominal pain
[2017-10-23 15:06] LABS: ALB/GLOB RATIO 1.2 (1.0-2.1); ALBUMIN 4.5 g/dL (3.5-5.0); ALT/SGPT 14 U/L (9-52); AST/SGOT 26 U/L (14-36); BLOOD UREA NITROGEN 17 mg/dL (7-17); CALCIUM 9.5 mg/dl (8.6-10.4); GFR AFRICAN-AMERICAN > 60; GFR NON-AFRICAN AMERICAN > 60
--- NOTE | 2017-10-23 16:47 | US ---
HISTORY: Diffuse abdominal pain COMPARISON: None available. TECHNIQUE: Transabdominal and transvaginal FINDINGS: UTERUS: Status post hysterectomy ENDOMETRIUM: N/A CERVIX: Hysterectomy RIGHT OVARY: Measures 2.0 x 2.7 x 3.0 cm. No solid mass. 1.7 x 1.2 x 1.5 cm physiologic cyst. LEFT OVARY: Measures 2.6 x 1.7 x 2.7 cm. No solid mass. Normal flow. FREE FLUID: No significant free fluid noted. OTHER FINDINGS: None. IMPRESSION: Status post hysterectomy. Otherwise unremarkable.
[2017-10-23] MEDS ORDERED: Morphine 4 MG/ML VIAL IV STA (16:59)
[2017-10-23 17:06] VITALS: BP 124/80; PULSE 55; RESP 18
[2017-10-23] MEDS ORDERED: Iodixanol 320 MG/ML 100 ML BOTTLE IV ONE (17:07)
[2017-10-23] MEDS ORDERED: Morphine 4 MG/ML VIAL ONE (17:08)
--- NOTE | 2017-10-23 17:53 | CT ---
PROCEDURE: CT Abdomen and Pelvis with contrast HISTORY: Stomach pain. Relevant surgical history: Hysterectomy COMPARISON: 09/10/2017. CT abdomen and pelvis October 23, 2017. Pelvic ultrasound. TECHNIQUE: Contrast dose: 100 cc Visipaque 320. Radiation dose: Total exam DLP = 216.10 mGy-cm. This CT exam was performed using one or more of the following dose reduction techniques: Automated exposure control, adjustment of the mA and/or kV according to patient size, and/or use of iterative reconstruction technique. FINDINGS: LOWER THORAX: Unremarkable. LIVER: Unremarkable. No gross lesion or ductal dilatation. GALLBLADDER AND BILE DUCTS: Unremarkable. PANCREAS: Unremarkable. No gross lesion or ductal dilatation. SPLEEN: Unremarkable. ADRENALS: Unremarkable. No mass. KIDNEYS AND URETERS: Unremarkable. No hydronephrosis. No solid mass. VASCULATURE: Unremarkable. No aortic aneurysm. BOWEL: The stomach is collapsed accentuating gastric wall thickness . In the absence of oral contrast no additional information can be gleaned from this study. Gastritis therefore should be considered in the appropriate clinical setting. APPENDIX: Normal appendix. PERITONEUM: Unremarkable. No free fluid. No free air. LYMPH NODES: Unremarkable. No enlarged lymph nodes. BLADDER: Unremarkable. REPRODUCTIVE: Unremarkable. Cyst right hemipelvis better visualize, confirmed as right adnexal cyst measuring 2 cm. BONES: No acute fracture. OTHER FINDINGS: None. IMPRESSION: Diffuse gastric wall thickening likely related to absence of oral contrast, a decompressed stomach. Additional benign and/or incidental findings described above.
[2017-10-23 17:55] VITALS: O2SAT 100
== END 2017-10-23 18:31 | disposition home or self-care (01) ==
LOC: C.ER 13:21
DX: R10.32 Left lower quadrant pain (principal)
CPT/HCPCS: 74177; 76830; 76856; 80053; 81001; 83690; 85027; 87491; 87591; 96374; 96375; 99285; J1885; J2270; Q9967